=== PATIENT | female | born 1970 | race Caucasian/White ===

== ENCOUNTER → 2016-09-13 | Outpatient (CLI) | payer OTHER | LOC: BMCIMAGING 08:43 | DX: Z12.31 Encounter for screening mammogram for malignant neoplasm of breast (principal) | CPT/HCPCS: G0202 ==

== ENCOUNTER → 2018-05-07 | Outpatient (CLI) | payer OTHER | LOC: BMCIMAGING 12:26 | DX: Z12.31 Encounter for screening mammogram for malignant neoplasm of breast (principal) ==